=== PATIENT | male | born 1980 | race Two or more races ===

== ENCOUNTER → 2025-01-25 | Outpatient (BNVA) | payer MEDICAID, SELFPAY | END | disposition home or self-care (01) | PROVIDERS: PCP Nurse Practitioner Primary Care; Referring Provider Nurse Practitioner Primary Care; Visit Provider Nurse Practitioner Primary Care | DX: Z76.89 Persons encountering health services in other specified circumstances (principal); J45.901 Unspecified asthma with (acute) exacerbation; J30.89 Other allergic rhinitis | CPT/HCPCS: 99202 ==

== ENCOUNTER → 2025-08-06 | Outpatient (BNVA) | payer MEDICAID, SELFPAY | END | disposition home or self-care (01) | PROVIDERS: PCP Nurse Practitioner Family; Referring Provider Nurse Practitioner Family; Visit Provider Nurse Practitioner Family | DX: Z71.1 Person with feared health complaint in whom no diagnosis is made (principal); Z28.21 Immunization not carried out because of patient refusal | CPT/HCPCS: 81001; 99213 ==

== ENCOUNTER → 2025-08-15 | Outpatient (BNVA) | payer MEDICAID, SELFPAY | END | disposition home or self-care (01) | PROVIDERS: PCP Nurse Practitioner Family; Referring Provider Nurse Practitioner Family; Visit Provider Nurse Practitioner Family | DX: Z00.01 Encounter for general adult medical examination with abnormal findings (principal); Z12.11 Encounter for screening for malignant neoplasm of colon; Z13.220 Encounter for screening for lipoid disorders; Z13.9 Encounter for screening, unspecified; Z11.3 Encounter for screening for infections with a predominantly sexual mode of transmission; Z28.21 Immunization not carried out because of patient refusal; K02.9 Dental caries, unspecified; Z71.85 Encounter for immunization safety counseling | CPT/HCPCS: 99173; 99215 ==

== ENCOUNTER → 2025-08-21 | Outpatient (BNVA) | payer MEDICAID, SELFPAY | END | disposition home or self-care (01) | PROVIDERS: PCP Nurse Practitioner Family; Referring Provider Nurse Practitioner Family; Visit Provider Nurse Practitioner Family | DX: Z71.2 Person consulting for explanation of examination or test findings (principal); E78.5 Hyperlipidemia, unspecified; Z28.21 Immunization not carried out because of patient refusal; E55.9 Vitamin D deficiency, unspecified | CPT/HCPCS: 99213 ==